=== PATIENT | female | born 1965 | race Caucasian/White ===

== ENCOUNTER 2016-04-01 11:35 | Emergency (ER) | payer OTHER ==
[~2016-04-01] VITALS: Ht 167.6 cm; Wt 92.2 kg
[~2016-04-01 11:35] MED LIST: CLARITIN10 M3 PO; COUMADIN,JANTOV10 MG PO; COUMADIN10 MG PO; DIABETA2.5 MG PO; FIORICET,ESG1 TABLET PO; FLEXERIL10 MG PO; GLYBURIDE2.5 MG PO; GLYBURIDE5 MG PO; LOPRESSOR50 MG PO; MELOXICAM15 MG PO; METOPROLOL SUCC50 MG PO; MOBIC7.5 MG PO; NAPROSYN500 MG PO; NAPROXEN500 MG PO; NYSTATIN100000 UN1 PO; PERCOCET 5/31 TABLET PO; PERCOCET 7.51 TABLET PO; PREDNISONE50 MG PO; SYNTHROID50 MCG PO; TOPROL XL50 MG PO; ULTRAM50 MG PO; WELCHOL625 MG PO; WYGESIC,DARV1 TABLET PO; ZOFRAN4 MG PO
[2016-04-01 12:58] LABS: HEMATOCRIT 42.2 % (36.0-46.0); MCH 30.4 PG (29.0-34.0); MCHC 33.6 G/DL (30.0-36.0); MCV 90.4 FL (83-99); MEAN PLAT.VOLUME 9.8 uM^3 (9.5-12.4); PLATELET COUNT 364 K/uL (156-360); RBC DIS.WIDTH-CV 12.6 % (11.8-14.6); RBC DIS.WIDTH-SD 40.7 % (39-53); RED BLOOD COUNT 4.67 M/uL (3.80-5.20); WHITE BLOOD COUNT 7.2 K/uL (4.1-10.2)
[2016-04-01 13:06] LABS: CHLORIDE 103 mEq/L (99-109); POTASSIUM 4.4 mEq/L (3.7-5.4); SODIUM 138 mEq/L (136-147)
[2016-04-01 13:08] LABS: GLUCOSE 274 mg/dL (70-99)
[2016-04-01 13:09] LABS: ANION GAP 14 MEQ/L (2-14); D-DIMER ELISA 0.73 mg/L FEU (< 0.57)
[2016-04-01 13:12] LABS: GFR ESTIMATE (CALCULATED) 56 mL/min/; UREA NITROGEN (BUN) 17 mg/dL (9-23)
[2016-04-01 13:21] LABS: TROP-I INTERPRETATION NEGATIVE; TROPONIN-I < 0.01 ng/mL (0.0-0.30)
[2016-04-01 14:11] LABS: ADD MIUA? YES; BILIRUBIN NEGATIVE; BLOOD NEGATIVE; GLUCOSE (STRIP) >=1000; KETONES NEGATIVE; LEUKOCYTES NEGATIVE; NITRITE NEGATIVE; PROTEIN (STRIP) NEGATIVE; SPECIFIC GRAVITY 1.015 (1.000-1.030); UROBILINOGEN 0.2 MG/DL (0.2-1.0)
[2016-04-01 14:18] LABS: COLOR LT YELLOW ((YELLOW))
[2016-04-01 14:33] LABS: BACTERIA 2+; CASTS NONE SEEN /LPF; CRYSTALS NONE SEEN; EPITHELIAL CELLS 2+; MUCUS NONE SEEN; PATHOLOGICAL CAST NONE SEEN; RED BLOOD CELLS 0-5 /HPF (0-5); SMALL ROUND CELL NONE SEEN; UCUL ADDED? NO; WHITE BLOOD CELLS 0-5 /HPF (0-5); YEAST-LIKE CELL NONE SEEN
[2016-04-01 18:05] LABS: INTER. NORMALIZED RATIO 1.1; PROTHROMBIN TIME 10.7 (9.2-11.2); PTT 28.2 (25-32)
[2016-04-01] MEDS ORDERED: NAPROXEN500 MG PO (19:12)
[2016-04-01] MEDS ORDERED: CIPRO500 MG PO (19:12)
[2016-04-01] MEDS ORDERED: FLAGYL500 MG PO (19:12)
[2016-04-01 19:27] VITALS: BP 128/74
== END 2016-04-01 19:31 | disposition left against medical advice (07) ==
LOC: EME 11:35
PROVIDERS: Emergency Medicine; Physician Assistant
DX: K35.80 Unspecified acute appendicitis (principal); Z53.29 Procedure and treatment not carried out because of patient's decision for other reasons; I10 Essential (primary) hypertension; E11.9 Type 2 diabetes mellitus without complications; E78.5 Hyperlipidemia, unspecified; E03.9 Hypothyroidism, unspecified; Z79.4 Long term (current) use of insulin; Z88.1 Allergy status to other antibiotic agents; Z88.2 Allergy status to sulfonamides; Z88.8 Allergy status to other drugs, medicaments and biological substances
CPT/HCPCS: 71020; 71275; 74176; 80048; 81003; 84484; 85027; 85379; 85610; 85730; 86850; 86900; 86901; 93005; 99281; 99285; J1885; J1956; J2270; J2405; J3010; J7030; J7120; S0030

== ENCOUNTER 2016-11-27 11:20 | Emergency (ER) | payer OTHER ==
[~2016-11-27] VITALS: Ht 170.2 cm; Wt 94.4 kg
[~2016-11-27 11:20] MED LIST changes: +CIPRO500 MG PO; +FLAGYL500 MG PO
[2016-11-27] MEDS ORDERED: PERCOCET 5/31 TABLET PO (11:29)
[2016-11-27 14:30] VITALS: BP 149/84
== END 2016-11-27 14:31 | disposition home or self-care (01) ==
LOC: EME → EDBD 11:20 → EME 14:31
DX: S10.93XA Contusion of unspecified part of neck, initial encounter (principal); S20.229A Contusion of unspecified back wall of thorax, initial encounter; S40.012A Contusion of left shoulder, initial encounter; V49.40XA Driver injured in collision with unspecified motor vehicles in traffic accident, initial encounter; E11.9 Type 2 diabetes mellitus without complications; Z79.84 Long term (current) use of oral hypoglycemic drugs; I10 Essential (primary) hypertension; E03.9 Hypothyroidism, unspecified; Z86.718 Personal history of other venous thrombosis and embolism; Z88.2 Allergy status to sulfonamides; Z88.1 Allergy status to other antibiotic agents
CPT/HCPCS: 72040; 72100; 73030; 99281; 99284

== ENCOUNTER 2017-06-11 09:17 | Emergency (ER) | payer OTHER ==
[~2017-06-11] VITALS: Ht 167.6 cm; Wt 96.4 kg
[2017-06-11 11:51] LABS: HEMATOCRIT 41.3 % (36.0-46.0); HEMOGLOBIN 14.3 G/DL (11.9-15.5); MCH 31.8 PG (29.0-34.0); MCHC 34.6 G/DL (30.0-36.0); MCV 91.8 FL (83-99); PLATELET COUNT 330 K/uL (156-360); RBC DIS.WIDTH-CV 12.6 % (11.8-14.6); RBC DIS.WIDTH-SD 42.3 % (39-53)
[2017-06-11 12:08] LABS: CHLORIDE 101 mEq/L (99-109); POTASSIUM 4.4 mEq/L (3.7-5.4); SODIUM 139 mEq/L (136-147)
[2017-06-11 12:10] LABS: GLUCOSE 182 mg/dL (70-99)
[2017-06-11 12:14] LABS: CREATININE 0.8 mg/dL (0.6-1.3); GFR ESTIMATE (CALCULATED) > 59 mL/min/
[2017-06-11 12:15] LABS: UREA NITROGEN (BUN) 12 mg/dL (9-23)
[2017-06-11 12:21] LABS: TROP-I INTERPRETATION NEGATIVE; TROPONIN-I < 0.01 ng/mL (0.0-0.30)
[2017-06-11] MEDS ORDERED: MOTRIN800 MG PO (12:32)
[2017-06-11 13:15] VITALS: BP 125/85
== END 2017-06-11 13:15 | disposition home or self-care (01) ==
LOC: EME 09:17
PROVIDERS: Nurse Practitioner Family
DX: M79.662 Pain in left lower leg (principal); R07.81 Pleurodynia; I10 Essential (primary) hypertension; E11.9 Type 2 diabetes mellitus without complications; K21.9 Gastro-esophageal reflux disease without esophagitis; E03.9 Hypothyroidism, unspecified; Z86.718 Personal history of other venous thrombosis and embolism; Z88.2 Allergy status to sulfonamides; Z88.1 Allergy status to other antibiotic agents; Z88.8 Allergy status to other drugs, medicaments and biological substances
CPT/HCPCS: 71046; 80048; 84484; 85027; 85379; 93005; 93971; 99281; 99282